=== PATIENT | female | born 1985 | race Two or more races ===

== ENCOUNTER 2024-08-13 00:01 | Emergency (ER) | payer MEDICAID, SELFPAY ==
[2024-08-13 00:10] VITALS: BP 113/71; PULSE 90; RESP 18; TEMP 37.2; O2SAT 98; BMI 23.8
--- NOTE | 2024-08-13 00:21 | EKG_ITS ---
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
--- NOTE | 2024-08-13 00:21 | XR_ITS ---
Examination: PA lateral chest 2 views Technique: Upright PA lateral chest 2 views Exam date and time: August 13, 2024 1230 hrs. Indications: Chest pain body aches today Findings: Normal heart size Lungs are clear The osseous structures are intact Impression: No active disease
--- NOTE | 2024-08-13 00:23 | PD.EDRME ---
Rapid Medical Screening Exam RME Arrival date/time: 08/13/24 00:01 39 year old female present to Ed for c/o of chest pain, n/v. I have greeted and performed a focused initial assessment of this patient. A comprehensive ED assessment and evaluation of the patient, analysis of all test results, and completion of the medical decision making process will be conducted by additional ED providers. Chief Complaint: Abdominal Pain Time Seen by Provider: 08/13/24 00:07 Vital signs: Vital Signs Temperature 98.9 F 08/13/24 00:10 Pulse Rate 90 08/13/24 00:10 Respiratory Rate 18 08/13/24 00:10 Blood Pressure 113/71 08/13/24 00:10 Pulse Oximetry (%) 98 08/13/24 00:10 Oxygen Delivery Method Room Air 08/13/24 00:10
[2024-08-13] MEDS: ONDANSETRON ODT 4 MG TABRAP PO (00:26)
[2024-08-13] MEDS: MG HYD/AL HYD/SIME (Maalox Reg) SUSP 30 ML UDC PO (00:26)
[2024-08-13 00:45] LABS: Basophils % (Auto) 0 % (0-2.5); Eosinophils # (Auto) 0.1 Thou/mm3 (0.0-0.5); Eosinophils % (Auto) 1 % (0-10); Hematocrit 36.7 % (36.0-46.0); Hemoglobin 12.4 g/dL (12.0-16.0); Immature Granulocytes % (Auto) 0 % (0-0); Immature Granulocytes Auto 0.02 Thou/mm3 (0.00-0.00); Lymphocytes # (Auto) 1.1 Thou/mm3 (1.0-4.8); Lymphocytes % (Auto) 20 % (10-50); Mean Corpuscular HGB Conc 33.8 g/dl (31.0-37.0); Mean Corpuscular Hemoglobin 27.3 pg (25.0-35.0); Mean Corpuscular Volume 81 fL (80-100); Monocytes # (Auto) 0.5 Thou/mm3 (0.0-0.8); Monocytes % (Auto) 9 % (0-12); Neutrophils # (Auto) 3.9 Thou/mm3 (1.8-7.7); Neutrophils % (Auto) 70 % (37-80); Nucleated Red Blood Cell % 0 /100 WBC (0); Platelet Count 183 Thou/mm3 (140-440); Red Blood Count 4.55 Miln/mm3 (4.00-5.20); White Blood Count 5.5 Thou/mm3 (3.6-11.0)
[2024-08-13 01:02] LABS: Alanine Aminotransferase 37 U/L (10-49); Albumin, Serum 4.9 gm/dL (3.5-5.0); Albumin/Globulin Ratio 1.8 (1.2-2.2); Alkaline Phosphatase 109 U/L (46-116); Anion Gap 6 (7-16); Aspartate Amino Transferase 28 U/L (0-34); BUN/Creatinine Ratio 10 Ratio (12-20); Bilirubin,Total 0.5 mg/dL (0.3-1.2); Blood Urea Nitrogen 7 mg/dL (9-23); Calcium 9.1 mg/dL (8.3-10.6); Calcium (Corrected) 9.1 mg/dL (8.5-10.1); Carbon Dioxide 25.2 mMol/L (20.0-31.0); Chloride 105 mMol/L (98-107); Creatinine (Component) 0.7 mg/dL (0.6-1.3); Estimated Creatinine Clearance 93.2 mL/min (>60); Globulin 2.7 gm/dL (2.3-3.5); Glucose 105 mg/dL (74-106); Lipase 50 U/L (12-53); Osmolality,Calculated 269 (275-295); Potassium 3.6 mMol/L (3.4-5.1); Sodium 136 mMol/L (136-145); Total Protein 7.6 gm/dL (5.7-8.2); Troponin I < 0.020 ng/mL (0.0-0.045); eGFR > 60 See Note
[2024-08-13 01:07] LABS: HCG,Qualitative Serum Negative
--- NOTE | 2024-08-13 03:29 | EDNOTE_ITS ---
<Statement entered by Raisa Patel MD - 08/13/24 22:07> As co-signing physician, I was present and available for consult prn. I concur with the plan and care as documented by the midlevel provider. ED Abdominal Pain RME/HPI General Chief Complaint: Abdominal Pain Stated complaint: EPIGASTRIC PAIN,N/V Time seen by provider: 08/13/24 00:07 Arrival date/time: 08/13/24 00:01 39 year old female present to emergency room with c/o of epigastric pain and nausea/vomiting today. LOCATION:epigastric SEVERITY: Symptoms are described as being severe with limitations on activities of daily living QUALITY: Symptoms are described as being cramping CONTEXT: The patient is unable to identify any inciting events. DURATION/TIMING: The symptoms started approximately one day ago and have been waxing/waning but always present without ever completely resolving. ASSOCIATED SYMPTOMS: The patient is unable to identify any other associated symptoms. MODIFYING FACTORS: The patient is unable to identify any alleviating or aggravating symptoms. PERTINENT ROS: no fevers, no anorexia, no nausea or vomiting, no diarrhea, no ripping or tearing sensations, no syncope or presyncopal symptoms, denies trauma, denies genital pain REVIEW OF SYSTEMS: See History of Present Illness - with the exception of those mentioned in the history of present illness, all other systems reviewed and reported as negative GENERAL: In general the patient is awake, interactive, in an emergency department gurney. HEAD/EYES/EARS/NOSE/THROAT: normo-cephalic, atraumatic, mucus membranes are moist, anicteric, palpebral conjunctiva is pink, trachea is midline. CARDIOVASCULAR: regular rate and regular rhythm, no murmurs, heart sounds are not distant, strong pulses in all four extremities that are equal and symmetric bilateral upper and lower extremities, normal capillary refill. CHEST/PULMONARY: normal chest rise and fall, good air movement, clear to auscultation bilaterally, normal inspiratory to expiratory ratios without evidence of respiratory distress. NECK: No midline/Paraspinal tenderness, no step off ROM/Strenght intact No Kernig and bruzinski sign. No trauma ABDOMEN: soft, epigastric pain , no masses appreciated BACK: normal range of motion without pain. NEUROLOGICAL: cranio-facial features are symmetric, moves all four extremities equally without obvious limitations or weakness. EXTREMITY: no tenderness to palpation over the long bones or large joints of the bilateral upper and lower extremities, no joint swelling, no joint erythema, no signs of trauma, no unilateral leg swelling and no peripheral edema. SKIN: warm, dry, well-perfused, no jaundice, no rash, no telangiectasias or petechia. PSYCH: calm, cooperative, no evidence of psychosis or agitation RME / HPI RME / HPI narrative: 08/13/24 00:01 39 year old female present to Ed for c/o of chest pain, n/v. I have greeted and performed a focused initial assessment of this patient. A comprehensive ED assessment and evaluation of the patient, analysis of all test results, and completion of the medical decision making process will be conducted by additional ED providers. Related Data Previous Rx's ?Medication ?Instructions ?Recorded acetaminophen 300 mg-codeine 15 mg 1 tab PO Q12H PRN pain #14 tabs 05/10/24 tablet albuterol sulfate 90 mcg/actuation 1 inh inhalation QID PRN shortness 05/10/24 aerosol inhaler of breath or wheezing #8.5 grams ibuprofen 800 mg tablet 800 mg PO Q8H PRN pain #20 tabs 05/10/24 aluminum-mag hydroxide-simethicone 10 ml PO TID PRN indigestion #355 08/13/24 400 mg-400 mg-40 mg/5 mL oral susp mL (Maalox Maximum Strength) ondansetron 4 mg disintegrating 4 mg PO Q8H PRN nausea and 08/13/24 tablet vomiting #20 tabs Allergies Allergy/AdvReac Type Severity Reaction Status Date / Time No Known Allergies Allergy Verified 08/13/24 00:05 Course Course Course Narrative: Patient?s symptoms not typical for emergent causes of abdominal pain such as, but not limited to, appendicitis, abdominal aortic aneurysm, surgical biliary disease, pancreatitis, SBO, mesenteric ischemia, serious intra-abdominal bacterial illness. Presentation also not typical of gynecologic emergencies such as?TOA, Ovarian Torsion, PID. Not Ectopic. Doubt atypical ACS. Pt tolerating PO. Disposition: Patient will be discharged with strict return precautions and follow up with primary MD within 12-24 hours for further evaluation. Patient understands that this still may have an early presentation of an emergent medical condition such as appendicitis that will require a recheck. Quality Measures none Orders Category Date Time Status EKG (ED ONLY) *Do not use* NOW Care 08/13/24 00:21 Completed EKG (ED Only) Stat Exams 08/13/24 00:21 Draft XR chest 2V Stat Exams 08/13/24 00:21 Taken CBC Stat Lab 08/13/24 00:38 Completed CMP [Comprehensive Metabolic Panel] Stat Lab 08/13/24 00:38 Completed HCG,Qualitative Serum Stat Lab 08/13/24 00:38 Completed Lipase Stat Lab 08/13/24 00:38 Completed Troponin I Stat Lab 08/13/24 00:38 Completed Ondansetron Odt [Zofran Odt] Med 08/13/24 00:21 Discontinued 4 mg PO X1 ONE mg Hyd/Al Hyd/Ranjeet Susp [Maalox Susp] Med 08/13/24 00:21 Discontinued 30 ml PO X1 ONE Reevaluation(s) Reevaluation #1: patient is feeling and comfortable to go home Vital Signs Vital signs: Vital Signs Temperature 98.9 F 08/13/24 00:10 Pulse Rate 90 08/13/24 00:10 Respiratory Rate 18 08/13/24 00:10 Blood Pressure 113/71 08/13/24 00:10 Pulse Oximetry (%) 98 08/13/24 00:10 Oxygen Delivery Method Room Air 08/13/24 00:10 Procedures -ED EKG Interpretation #1: Date of EK08/13/24 Rate: 72 Interpretation: Reviewed by me EKG Impression: Normal sinus rhythm, No acute ST-T changes, No ectopy and No ischemic changes Abdominal Pain MDM Patient data External records reviewed:: [facility] previous records Clinical information provided by:: patient Social determinants that could affect healthcare access:: none Patient has the following chronic illnesses:: none How is presenting disease/condition affected by chronic disease/condition?: no chronic disease Evaluation data The following diagnostics were reviewed and interpreted by me:: lab results, radiology exam(s) and EKG tracing(s) Lab and/or radiology exams considered but not ordered:: none Interpretation Summary: cbc/cmp, trop, lipase wnl Medications / Prescriptions Medications or Prescriptions considered but not ordered:: none Medication administrations:: Medication Administration History Discontinued Medications Al Hydrox/Mg Hydrox/Simethicone (Mg Hyd/Al Hyd/Ranjeet (Maalox Reg) Susp 30 Ml Udc) 30 ml PO X1 ONE Stop: 08/13/24 00:22 Last Admin: 08/13/24 00:26 Dose: 30 ml Documented By: Ondansetron HCl (Ondansetron Odt 4 Mg Tabrap) 4 mg PO X1 ONE; Protocol Stop: 08/13/24 00:22 Last Admin: 08/13/24 00:26 Dose: 4 mg Documented By: as stated above Consultations Consultation(s) initiated? (list below): No Diagnosis Differential diagnosis abdominal pain: abdominal pain, calculus of kidney, constipation, gastroenteritis, pancreatitis and other (gerd/ulcer , uti ) Most likely diagnosis given after review of the tests above:: gerd/gastritis Admission Indicated Admission indicated?: not indicated Admission Request Was there a request for admission?: No Disposition Plan Disposition Plan: Discharge Discharge Attestation Discharge Attestation: The patient and all family members were given an opportunity to ask questions and understood the discharge instructions. Discharge instructions specifically effects, indications for sooner follow up or return to the emergency department, and the expected course of current diagnosis. Patient condition: Stable Discharge Plan Plan Patient Disposition: HOME (Self Care) Prescriptions/Referrals Prescriptions/Med Rec: New ondansetron 4 mg tablet,disintegrating 4 mg PO Q8H PRN (Reason: nausea and vomiting) Qty: 20 0RF alum-mag hydroxide-simeth [Maalox Maximum Strength] 400-400-40 mg/5 mL suspension 10 ml PO TID PRN (Reason: indigestion) Qty: 355 0RF No Action albuterol sulfate 90 mcg/actuation HFA aerosol inhaler 1 inh inhalation QID PRN (Reason: shortness of breath or wheezing) Qty: 8.5 0RF acetaminophen-codeine 300-15 mg tablet 1 tab PO Q12H PRN (Reason: pain) Qty: 14 0RF ibuprofen 800 mg tablet 800 mg PO Q8H PRN (Reason: pain) Qty: 20 0RF Referrals: Ary Neumann MD [Primary Care Provider] - In 1 week Problem List Clinical Impression: Abdominal pain Patient/Caregiver Discharge Instructions Education Materials: Abdominal Pain Print Language: Turkmen Stand Alone Forms: [employer] Award Info., Patient Portal Info Letter
[2024-08-13 03:32] VITALS: RESP 18
== END 2024-08-13 03:33 | disposition home or self-care (01) ==
PROVIDERS: Physician Assistant; Emergency Provider Emergency Medicine; PCP Internal Medicine
DX: R10.13 Epigastric pain (principal); R11.2 Nausea with vomiting, unspecified; R07.9 Chest pain, unspecified
CPT/HCPCS: 36415; 71046; 80053; 83690; 84484; 84703; 85025; 93005; 99283; Q0162; A9270

== ENCOUNTER → 2024-10-14 | Outpatient (CLI) | payer MEDICAID, SELFPAY ==
--- NOTE | 2024-10-14 10:00 | XR_ITS ---
Examination: CT maxillofacial, without intravenous contrast. 2-D sagittal reconstructions. 3-D reconstructions. Date and time of exam:October 14, 2024 1019 hours INDICATIONS: Sinus pressure and pain 2 years CTDI: vol (mGy):6.61 DLP: (mGycm):120 Technique: Multiple axial images of maxillofacial region, 3.0 mm slice thickness. 2-D sagittal and coronal reconstructions. 3-D reconstructions. Low dose protocols were performed. One or more of the following dose reduction techniques were used; automated exposure control, adjustment of the mA and/or KV according to patient size, use of iterative reconstruction technique. Findings: Total opacification frontal air cells Total opacification right ethmoid air cells with occlusion right ostiomeatal complex Mucosal thickening up to 12 mm in the maxillary antra Extensive mucosal disease in the nasal airways Almost complete opacification of the sphenoid air cells No nasopharyngeal mass Adequate mastoid aeration Negative for otitis media The optic globes exhibit symmetry IMPRESSION: Severe chronic pansinusitis
== END | disposition home or self-care (01) ==
LOC: CCTX 10:04
PROVIDERS: PCP Internal Medicine; Referring Provider Internal Medicine; Visit Provider Internal Medicine
DX: J32.4 Chronic pansinusitis (principal)
CPT/HCPCS: 70486

== ENCOUNTER → 2024-12-27 | Outpatient (CLI) | payer MEDICAID, SELFPAY ==
--- NOTE | 2024-12-27 11:30 | XR_ITS ---
Examination: Ultrasound soft tissue neck TECHNIQUE: Grayscale sonographic images soft tissue neck Exam date and time: December 27, 2024 1125 hours INDICATIONS: History biopsy left thyroid nodule, history multiple thyroid nodules with swelling in the mid neck beginning 3 years ago FINDINGS: Soft tissue upper right neck 15 x 9 x 14 mm lymph node Soft tissue upper left neck 23 x 8 x 11 mm lymph node IMPRESSION: Lymphadenopathy as above, suggest CT soft tissue neck post intravenous contrast follow-up
== END | disposition home or self-care (01) ==
PROVIDERS: PCP Internal Medicine; Referring Provider Internal Medicine; Visit Provider Internal Medicine
DX: R59.0 Localized enlarged lymph nodes (principal)
CPT/HCPCS: 76536

== ENCOUNTER → 2025-01-26 | Outpatient (CLI) | payer MEDICAID, SELFPAY ==
--- NOTE | 2025-01-26 13:30 | XR_ITS ---
Examination: CT soft tissue neck, with intravenous contrast. 2-D coronal reconstructions. 2-D sagittal reconstructions. Date and time of exam :January 26, 2025 1426 hours INDICATIONS: Palpable lymph nodes in the neck note is beginning one month ago, ultrasound soft tissue neck December 27, 2024 15 mm right neck lymph node and 23 mm left neck lymph node. CTDI: vol (mGy):10.7 DLP: (mGycm):279 Technique: 1.25 mm axial sections of the neck of the obtained. Coronal and sagittal reconstructions have been obtained. Intravenous contrast administered 50 cc Isovue-370. Low dose protocols were performed. One or more of the following dose reduction techniques were used; automated exposure control, adjustment of the mA and/or KV according to patient size, use of iterative reconstruction technique. Findings: Bilateral carotid triangle lymph nodes, the largest on the left side 13 mm Subcentimeter submental lymph nodes Symmetrical nasopharynx oropharynx The larynx appears normal Bilateral thyroid nodules, the largest on the left side 10 mm Normal epiglottis IMPRESSION: Cervical lymphadenopathy as above Bilateral thyroid nodules, suggest dedicated thyroid sonography follow-up
== END | disposition home or self-care (01) ==
LOC: CCTX 13:37
PROVIDERS: PCP Internal Medicine; Referring Provider Internal Medicine; Visit Provider Internal Medicine
DX: R59.0 Localized enlarged lymph nodes (principal); E04.2 Nontoxic multinodular goiter
CPT/HCPCS: 70491; A4649; Q9967

== ENCOUNTER → 2025-02-22 | Outpatient (CLI) | payer MEDICAID, SELFPAY ==
--- NOTE | 2025-02-22 09:45 | XR_ITS ---
Examination: Thyroid sonography complete TECHNIQUE: Grayscale sonographic images thyroid lobes Date and time: February 22, 2025 1001 hours INDICATIONS: Thyroid nodules noted on CT soft tissue study January 26, 2025. FINDINGS: Right thyroid 6.5 cm Upper pole cyst 7 x 6 mm Complex upper pole cyst 3 x 4 mm Upper pole vascular solid nodule 7 x 4 x 7 mm Left thyroid 5.9 cm Upper pole nodule 11 x 8 x 11 mm Midpole nodule 2.2 x 1.8 x 1.6 cm Lower pole nodule 1.0 x 0.6 x 0.9 cm Additional smaller nodules IMPRESSION: Bilateral thyroid nodules as above, consider ultrasound-guided fine-needle aspiration of the mid pole left thyroid nodule 2.2 x 1.8 x 1.6 cm
== END | disposition home or self-care (01) ==
PROVIDERS: PCP Internal Medicine; Referring Provider Internal Medicine; Visit Provider Internal Medicine
DX: E04.2 Nontoxic multinodular goiter (principal)
CPT/HCPCS: 76536

== ENCOUNTER 2025-03-07 04:01 | Emergency (ER) | payer MEDICAID, SELFPAY ==
--- NOTE | 2025-03-07 | XR_ITS ---
Examination: MRI pelvis with intravenous contrast. MRI pelvis without intravenous contrast. Date and time of exam: February 25, 2025 0819 hours INDICATIONS: Severe lower abdominal pain beginning this morning 3:00 AM, in large right adnexal mass, pelvic sonogram this morning vascular in large right ovary Technique: Multiple axial, sagittal and coronal sections of the abdomen obtained. Transverse images, TR 6020, TE 107. T1 weighted transverse images, TR 582, TE 9.5. T2-weighted sagittal images, TR 4000, TE 105. T2-weighted sagittal images, TR 4000, TE 5. Coronal images, TR 4210, TE 107. Axial and coronal images are obtained post 12 cc intravenous injection, gadolinium. Findings: Anteverted uterus, 9 x 3.8 x 4 cm Enhancing mass anterior surface of the body the uterus 24 mm consistent with fibroid degeneration Cystic mass in the right adnexal region, 5.2 cm with enhancing thick wall but without internal nodularity Urinary bladder intact No left ovarian enlargement IMPRESSION: Thick-walled cystic mass in the right adnexal region 5.2 cm, differential would include complex cyst, cystadenoma, less likely cystadenocarcinoma
[2025-03-07 04:04] VITALS: BMI 23.1
[2025-03-07 04:05] VITALS: BP 144/78; PULSE 70; RESP 18; TEMP 37.1; O2SAT 100
[2025-03-07 04:10] VITALS: PULSE 72; RESP 20; O2SAT 99
--- NOTE | 2025-03-07 04:33 | EDNOTE_ITS ---
ED Abdominal Pain RME/HPI General Chief Complaint: Abdominal Pain Stated complaint: ABD PAIN Time seen by provider: 03/07/25 04:40 Arrival date/time: 03/07/25 04:01 RME / HPI RME / HPI narrative: This section includes all my notes and documentations, including HPI, PE, and ED course. Jae Oconnell MD HPI: 39yo female BIBA with severe lower abdominal pain that started just prior to arrival. Patient was bottle feeding her baby when the pain started. No fever, chills, nausea, vomiting, UTI symptoms. PSH includes x1. No other complaints. ROS: All negative except as documented in HPI. Physical Exam: General: Alert and oriented. In severe pain. Eyes: Conjunctivae and lids clear. ENT: No nasal congestion. Neck: Supple. Heart: RRR. Lungs: No respiratory distress. Good air movement. No rhonchi, wheezing, rales. Abdomen: Soft with lower quadrant tenderness, R > L.decreased bowel sounds. No distension. No rebound or guarding. Back: No CVA tenderness. Skin: Warm and dry. Neuro: Alert and oriented X 3. I reviewed EMS notes. I ordered IV fluid, Zofran, Toradol, morphine, and diagnostic tests. At 0600 on 03/07/25, care transferred to Dr. Ames. Jae Oconnell MD Related Data Previous Rx's ?Medication ?Instructions ?Recorded acetaminophen 300 mg-codeine 15 mg 1 tab PO Q12H PRN p ain #14 tabs 05/10/24 tablet albuterol sulfate 90 mcg/actuation 1 inh inhalation QI D PRN shortness 05/10/24 aerosol inhaler of breath or wheezing #8.5 g pedro ibuprofen 800 mg tablet 800 mg PO Q8H PRN pain #20 t abs 05/10/24 aluminum-mag hydroxide-simethicone 10 ml PO TID PRN in digestion #355 08/13/24 400 mg-400 mg-40 mg/5 mL oral susp mL (Maalox Maximum Strength) ondansetron 4 mg disintegrating 4 mg PO Q8H PRN nausea and 08/13/24 tablet vomiting #20 tabs Allergies Allergy/AdvReac Type Severity Reaction Status Date / Time No Known Allergies Allergy Verified 08/13/24 00:05 Review of Systems Review of Systems Systems Reviewed: All systems reviewed, normal except as documented Past Medical History Past Medical History NEUROLOGIC: Negative Neurological Disorders or Seizures CARDIAC: Negative Cardiac Disorders or Congestive Heart Failure RESPIRATORY: Positive Bronchitis; Negative Chronic Obstructive Pulmonary Disease (COPD) GASTROINTESTINAL: Negative Gastrointestinal Disorders GENITOURINARY: Negative Genitourinary Disorders or Renal Disease REPRODUCTIVE: Negative Pelvic Inflammatory Disease MUSCULOSKELETAL: Negative Musculoskeletal Disorders ENDOCRINE: Positive Endocrine Disorders and Hyperthyroidism (not on meds); Negative Diabetes Mellitus Type 1, Diabetes Mellitus Type 2 or Hypoglycemia HEMATOLOGIC: Positive Blood Disorders and Anemia OTHER HISTORY: Negative Autoimmune Disease, Blood Transfusions, Blood Transfusion Reaction, Anesthesia Reactions, MRSA, VRSA, Vancomycin-Resistant Enterococci, Clostridium Difficile or Cancer Family History FAMILY HISTORY: Negative Family Psychiatric Problems, Family Respiratory Disorders, Family Cardiac Disorders, Family Gastrointestinal Problems, Family Cancer, Family Surgery or Family Anesthesia Reaction Social History SMOKING STATUS: Never smoker ED Exam Narrative Physical exam: As noted in HPI. Course Quality Measures none Vital Signs Vital signs: Vital Signs Temperature 98.8 F 03/07/25 04:05 Pulse Rate 70 03/07/25 04:05 Respiratory Rate 18 03/07/25 04:05 Blood Pressure 144/78 H 03/07/25 04:05 Pulse Oximetry (%) 100 03/07/25 04:05 Oxygen Delivery Method Room Air 03/07/25 04:05 Abdominal Pain MDM MDM Narrative MDM Narrative:: 39yo female BIBA with severe lower abdominal pain that started just prior to arrival. Patient was bottle feeding her baby when the pain started. No fever, chills, nausea, vomiting, UTI symptoms. PSH includes x1. No other complaints. Patient data External records reviewed:: [facility] previous records (Per chart review, patient was seen here on 08/13/24 for abdominal pain.) and EMS form Clinical information provided by:: patient Social determinants that could affect healthcare access:: none Patient has the following chronic illnesses:: none How is presenting disease/condition affected by chronic disease/condition?: no chronic disease Evaluation data The following diagnostics were reviewed and interpreted by me:: lab results, radiology exam(s) and EKG tracing(s) (My interpretation of the EKG: NSR (67 bpm) with no ST-T changes. Jae Oconnell MD) Lab and/or radiology exams considered but not ordered:: none Interpretation Summary: Diagnostic tests are pending. Medications / Prescriptions Medications or Prescriptions considered but not ordered:: none Medication administrations:: I ordered IV fluid, Zofran, and morphine. Consultations Consultation(s) initiated? (list below): No Diagnosis Differential diagnosis abdominal pain: acute appendicitis, calculus of kidney, constipation, diverticulitis, endometriosis, gastroenteritis, pancreatitis and small bowel obstruction Most likely diagnosis given after review of the tests above:: Diagnostic tests are pending. Admission Indicated Admission indicated?: not indicated Explain why admission is indicated or not indicated:: Diagnostic tests are pending. Admission Request Was there a request for admission?: No Disposition Plan Disposition Plan: other (specify) (Signed out to Dr. Ames at 0600.) Discharge Plan Prescriptions/Referrals Prescriptions/Med Rec: No Action ondansetron 4 mg tablet,disintegrating 4 mg PO Q8H PRN (Reason: nausea and vomiting) Qty: 20 0RF alum-mag hydroxide-simeth [Maalox Maximum Strength] 400-400-40 mg/5 mL suspension 10 ml PO TID PRN (Reason: indigestion) Qty: 355 0RF albuterol sulfate 90 mcg/actuation HFA aerosol inhaler 1 inh inhalation QID PRN (Reason: shortness of breath or wheezing) Qty: 8.5 0RF acetaminophen-codeine 300-15 mg tablet 1 tab PO Q12H PRN (Reason: pain) Qty: 14 0RF ibuprofen 800 mg tablet 800 mg PO Q8H PRN (Reason: pain) Qty: 20 0RF Problem List Clinical Impression: Abdominal pain Patient/Caregiver Discharge Instructions Print Language: Azerbaijani
--- NOTE | 2025-03-07 04:50 | XR_ITS ---
Examination: CT abdomen with intravenous contrast CT pelvis with intravenous contrast 2-D coronal reconstructions 2-D sagittal reconstructions Date and time of exam:March 07, 2025 at 0644 hours INDICATIONS: Onset of pelvic pain today. CTDI: vol (mGy) 6.42 DLP: (mGycm) 342 Technique: Multiple axial sections of the abdomen and pelvis have been obtained. 64 slice high-resolution scanner used. 3 mm axial sections have been obtained, post intravenous injection 60 cc Isovue-370 2-D sagittal, coronal reconstructions obtained. Low dose protocols were performed. One or more of the following dose reduction techniques were used; automated exposure control, adjustment of the mA and/or KV according to patient size, use of iterative reconstruction technique. Findings: 13 mm low-density lesion upper right lobe of the liver which may represent a cyst Spleen is not enlarged No gallstones No pancreatic mass No renal or ureteral calculi, no hydronephrosis Aorta normal size Normal appendix No bowel obstruction Anteverted uterus Enlarged right adnexal mass with thick wall and septations, measuring at least 5 cm Urinary bladder intact Osseous structures intact IMPRESSION: Recommend hepatic sonography to confirm 13 mm right lobe liver cyst Enlarged right adnexal mass, thick-walled with septations, measuring at least 5 cm, differential would include cystadenocarcinoma Recommend MRI pelvis follow-up and postcontrast
--- NOTE | 2025-03-07 04:51 | XR_ITS ---
Examination: Pelvic ultrasound, transabdominal, complete Technique: Transabdominal ultrasound of the pelvis performed using grayscale imaging Date and time of exam: March 07, 2025 0558 hours INDICATIONS: Pelvic pain and weakness beginning 2 hours ago FINDINGS: Uterus 9.1 cm endometrial stripe 0.5 cm No uterine mass or intrauterine gestation Right ovary 5.2 cm arterial flow, right ovarian cyst 19 x 21 mm Left ovary obscured by bowel gas IMPRESSION: Abnormal enlargement and vascular right ovary 5.2 x 4.1 x 3.9 cm, differential would include early right ovarian tumor, recommend MRI pelvis follow-up pre and postcontrast
[2025-03-07 05:04] LABS: Basophils % (Auto) 0 % (0-2.5); Eosinophils # (Auto) 0.5 Thou/mm3 (0.0-0.5); Eosinophils % (Auto) 6 % (0-10); Hematocrit 36.1 % (36.0-46.0); Hemoglobin 12.5 g/dL (12.0-16.0); Immature Granulocytes % (Auto) 0 % (0-0); Immature Granulocytes Auto 0.03 Thou/mm3 (0.00-0.00); Lymphocytes # (Auto) 2.4 Thou/mm3 (1.0-4.8); Lymphocytes % (Auto) 26 % (10-50); Mean Corpuscular HGB Conc 34.6 g/dl (31.0-37.0); Mean Corpuscular Hemoglobin 28.2 pg (25.0-35.0); Mean Corpuscular Volume 81 fL (80-100); Monocytes # (Auto) 0.7 Thou/mm3 (0.0-0.8); Monocytes % (Auto) 7 % (0-12); Neutrophils # (Auto) 5.5 Thou/mm3 (1.8-7.7); Neutrophils % (Auto) 60 % (37-80); Nucleated Red Blood Cell % 0 /100 WBC (0); Platelet Count 155 Thou/mm3 (140-440); Red Blood Count 4.44 Miln/mm3 (4.00-5.20); White Blood Count 9.1 Thou/mm3 (3.6-11.0)
[2025-03-07 05:15] LABS: HCG,Qualitative Serum Negative
[2025-03-07 05:17] LABS: Partial Thromboplastin Time 24.5 Seconds (22.0-36.0); Prothrombin Time 11.3 Seconds (9.0-12.2)
[2025-03-07] MEDS: KETOROLAC INJ 30 MG/ML VIAL IVP (05:18)
[2025-03-07] MEDS: SODIUM CHLORIDE 0.9% 1000 ML 1,000 ML 999 ML IV (05:18)
[2025-03-07] MEDS: ONDANSETRON INJ 2 MG/ML INJ 2 ML 4 MG IVP (05:18)
[2025-03-07] MEDS: MORPHINE SULF INJ 10 MG/ML VIAL 4 MG IVP (05:19)
[2025-03-07 05:21] LABS: Alanine Aminotransferase 24 U/L (10-49); Albumin, Serum 4.7 gm/dL (3.5-5.0); Albumin/Globulin Ratio 1.8 (1.2-2.2); Alkaline Phosphatase 102 U/L (46-116); Anion Gap 8 (7-16); Aspartate Amino Transferase 24 U/L (0-34); BUN/Creatinine Ratio 16 Ratio (12-20); Bilirubin,Direct 0.1 mg/dL (0.0-0.3); Bilirubin,Total 0.4 mg/dL (0.3-1.2); Blood Urea Nitrogen 11 mg/dL (9-23); Calcium 9.3 mg/dL (8.3-10.6); Calcium (Corrected) 9.3 mg/dL (8.5-10.1); Carbon Dioxide 22.8 mMol/L (20.0-31.0); Chloride 108 mMol/L (98-107); Creatinine (Component) 0.7 mg/dL (0.6-1.3); Estimated Creatinine Clearance 93.2 mL/min (>60); Globulin 2.6 gm/dL (2.3-3.5); Glucose 100 mg/dL (74-106); Osmolality,Calculated 276 (275-295); Potassium 3.7 mMol/L (3.4-5.1); Sodium 139 mMol/L (136-145); Total Protein 7.3 gm/dL (5.7-8.2); eGFR > 60 See Note
--- NOTE | 2025-03-07 05:33 | EDNOTE_ITS ---
Emergency Room Addendum <Nikkie Riccardo - Last Filed: 03/07/25 05:35> Addendum Narrative: 0530: Care assumed from Dr. Ames, the previous shift emergency physician. Past medical, surgical, social and family history reviewed. Vitals and home medications reviewed. Results and treatment plan discussed. I will assume the care of the patient at this time and will follow the patient, pending CT abdomen pelvis, US transvaginal, and labs. Please refer to the emergency department record for history and examination from initial visit. <Haley Her - Last Filed: 03/07/25 11:00> Addendum Narrative: 0530: Care assumed from Dr. Ames, the previous shift emergency physician. Past medical, surgical, social and family history reviewed. Vitals and home medications reviewed. Results and treatment plan discussed. I will assume the care of the patient at this time and will follow the patient, pending CT abdomen pelvis, US transvaginal, and labs. Please refer to the emergency department record for history and examination from initial visit. 1050: Patient remains clinically stable throughout the emergency department visit. Re-assessment at the time of disposition demonstrates that the patient is in no acute distress. We reviewed all the results, analysis, and treatment plans. Patient is amenable to discharge. Strict return precautions were outlined. Patient was discharged in stable condition. Diagnoses: -Abdominal pain -Complex cyst of right ovary Results <Nikkie Gu - Last Filed: 03/07/25 05:35> Objective Laboratory: Laboratory Last Values WBC 9.1 Thou/mm3 (3.6-11.0) 03/07/25 04:50 RBC 4.44 Miln/mm3 (4.00-5.20) 03/07/25 04:50 Hgb 12.5 g/dL (12.0-16.0) 03/07/25 04:50 Hct 36.1 % (36.0-46.0) 03/07/25 04:50 MCV 81 fL (80-100) 03/07/25 04:50 MCH 28.2 pg (25.0-35.0) 03/07/25 04:50 MCHC 34.6 g/dl (31.0-37.0) 03/07/25 04:50 RDW Std Deviation 40.0 fL (36.4-46.3) 03/07/25 04:50 Plt Count 155 Thou/mm3 (140-440) 03/07/25 04:50 Neut % (Auto) 60 % (37-80) 03/07/25 04:50 Lymph % (Auto) 26 % (10-50) 03/07/25 04:50 [place] % (Auto) 7 % (0-12) 03/07/25 04:50 Eos % (Auto) 6 % (0-10) 03/07/25 04:50 Baso % (Auto) 0 % (0-2.5) 03/07/25 04:50 Neut # (Auto) 5.5 Thou/mm3 (1.8-7.7) 03/07/25 04:50 Lymph # (Auto) 2.4 Thou/mm3 (1.0-4.8) 03/07/25 04:50 [place] # (Auto) 0.7 Thou/mm3 (0.0-0.8) 03/07/25 04:50 Eos # (Auto) 0.5 Thou/mm3 (0.0-0.5) 03/07/25 04:50 Baso # (Auto) 0.0 Thou/mm3 (0.0-0.2) 03/07/25 04:50 Immature Gran # (Auto) 0.03 Thou/mm3 (0.00-0.00) H 03/07/25 04:50 Absolute Nucleated RBC 0.00 Thou/mm3 (0.00-0.00) 03/07/25 04:50 Immature Gran % 0 % (0-0) 03/07/25 04:50 Nucleated RBC % 0 /100 WBC (0) 03/07/25 04:50 PT 11.3 Seconds (9.0-12.2) 03/07/25 04:50 INR 1.0 (0.9-1.3) 03/07/25 04:50 APTT 24.5 Seconds (22.0-36.0) 03/07/25 04:50 Sodium 139 mMol/L (136-145) 03/07/25 04:50 Potassium 3.7 mMol/L (3.4-5.1) 03/07/25 04:50 Chloride 108 mMol/L (98-107) H 03/07/25 04:50 Carbon Dioxide 22.8 mMol/L (20.0-31.0) 03/07/25 04:50 Anion Gap 8 (7-16) 03/07/25 04:50 BUN 11 mg/dL (9-23) 03/07/25 04:50 Creatinine 0.7 mg/dL (0.6-1.3) 03/07/25 04:50 Estim Creat Clear Calc 93.2 mL/min (>60) 03/07/25 04:50 eGFR > 60 See Note (60-) 03/07/25 04:50 BUN/Creatinine Ratio 16 Ratio (12-20) 03/07/25 04:50 Glucose 100 mg/dL (74-106) 03/07/25 04:50 Calculated Osmolality 276 (275-295) 03/07/25 04:50 Calcium 9.3 mg/dL (8.3-10.6) 03/07/25 04:50 Corrected Calcium 9.3 mg/dL (8.5-10.1) 03/07/25 04:50 Magnesium 2.0 mg/dL (1.6-2.6) 03/07/25 04:50 Total Bilirubin 0.4 mg/dL (0.3-1.2) 03/07/25 04:50 Direct Bilirubin 0.1 mg/dL (0.0-0.3) 03/07/25 04:50 AST 24 U/L (0-34) 03/07/25 04:50 ALT 24 U/L (10-49) 03/07/25 04:50 Alkaline Phosphatase 102 U/L (46-116) 03/07/25 04:50 Total Protein 7.3 gm/dL (5.7-8.2) 03/07/25 04:50 Albumin 4.7 gm/dL (3.5-5.0) 03/07/25 04:50 Globulin 2.6 gm/dL (2.3-3.5) 03/07/25 04:50 Albumin/Globulin Ratio 1.8 (1.2-2.2) 03/07/25 04:50 HCG, Qual Negative 03/07/25 04:50 Ur Collection Type Clean Catch 03/07/25 06:28 Urine Color Colorless (Lt Yel-Yel) A 03/07/25 06:28 Urine Clarity Clear (Clear/Hazy) 03/07/25 06: Urine pH 6.5 (5.0-7.0) 03/07/25 06: Ur Specific [place] 1.007 (1.001-1.035) 03/07/25 06: Urine Protein Negative (Neg - Trace) 03/07/25 06: Urine Glucose (UA) Negative (Negative) 03/07/25: Urine Ketones Negative (Negative) 03/07/25: Urine Blood Negative (Negative) 03/07/25 06: Urine Nitrite Negative (Negative) 03/07/25: Urine Bilirubin Negative (Negative) 03/07/25: Urine Urobilinogen (Auto) Negative mg/dL (0.0-1.0) 03/07/25: Ur Leukocyte Esterase Negative (Negative) 03/07/25: Urine RBC 2 /hpf (0-3) 03/07/25: Urine WBC 1 /hpf (0-5) 03/07/25: Ur Squamous Epith Cells 1 /hpf (0-5) 03/07/25: Urine Bacteria None (None) 03/07/25 06: Ur Culture Indicated? Not Indicated 03/07/25: <Haley Arden - Last Filed: 03/07/25 11:00> Objective Laboratory: Laboratory Last Values WBC 9.1 Thou/mm3 (3.6-11.0) 03/07/25 04:50 RBC 4.44 Miln/mm3 (4.00-5.20) 03/07/25 04:50 Hgb 12.5 g/dL (12.0-16.0) 03/07/25 04:50 Hct 36.1 % (36.0-46.0) 03/07/25 04:50 MCV 81 fL (80-100) 03/07/25 04:50 MCH 28.2 pg (25.0-35.0) 03/07/25 04:50 MCHC 34.6 g/dl (31.0-37.0) 03/07/25 04:50 RDW Std Deviation 40.0 fL (36.4-46.3) 03/07/25 04:50 Plt Count 155 Thou/mm3 (140-440) 03/07/25 04:50 Neut % (Auto) 60 % (37-80) 03/07/25 04:50 Lymph % (Auto) 26 % (10-50) 03/07/25 04:50 [place] % (Auto) 7 % (0-12) 03/07/25 04:50 Eos % (Auto) 6 % (0-10) 03/07/25 04:50 Baso % (Auto) 0 % (0-2.5) 03/07/25 04:50 Neut # (Auto) 5.5 Thou/mm3 (1.8-7.7) 03/07/25 04:50 Lymph # (Auto) 2.4 Thou/mm3 (1.0-4.8) 03/07/25 04:50 [place] # (Auto) 0.7 Thou/mm3 (0.0-0.8) 03/07/25 04:50 Eos # (Auto) 0.5 Thou/mm3 (0.0-0.5) 03/07/25 04:50 Baso # (Auto) 0.0 Thou/mm3 (0.0-0.2) 03/07/25 04:50 Immature Gran # (Auto) 0.03 Thou/mm3 (0.00-0.00) H 03/07/25 04:50 Absolute Nucleated RBC 0.00 Thou/mm3 (0.00-0.00) 03/07/25 04:50 Immature Gran % 0 % (0-0) 03/07/25 04:50 Nucleated RBC % 0 /100 WBC (0) 03/07/25 04:50 PT 11.3 Seconds (9.0-12.2) 03/07/25 04:50 INR 1.0 (0.9-1.3) 03/07/25 04:50 APTT 24.5 Seconds (22.0-36.0) 03/07/25 04:50 Sodium 139 mMol/L (136-145) 03/07/25 04:50 Potassium 3.7 mMol/L (3.4-5.1) 03/07/25 04:50 Chloride 108 mMol/L (98-107) H 03/07/25 04:50 Carbon Dioxide 22.8 mMol/L (20.0-31.0) 03/07/25 04:50 Anion Gap 8 (7-16) 03/07/25 04:50 BUN 11 mg/dL (9-23) 03/07/25 04:50 Creatinine 0.7 mg/dL (0.6-1.3) 03/07/25 04:50 Estim Creat Clear Calc 93.2 mL/min (>60) 03/07/25 04:50 eGFR > 60 See Note (60-) 03/07/25 04:50 BUN/Creatinine Ratio 16 Ratio (12-20) 03/07/25 04:50 Glucose 100 mg/dL (74-106) 03/07/25 04:50 Calculated Osmolality 276 (275-295) 03/07/25 04:50 Calcium 9.3 mg/dL (8.3-10.6) 03/07/25 04:50 Corrected Calcium 9.3 mg/dL (8.5-10.1) 03/07/25 04:50 Magnesium 2.0 mg/dL (1.6-2.6) 03/07/25 04:50 Total Bilirubin 0.4 mg/dL (0.3-1.2) 03/07/25 04:50 Direct Bilirubin 0.1 mg/dL (0.0-0.3) 03/07/25 04:50 AST 24 U/L (0-34) 03/07/25 04:50 ALT 24 U/L (10-49) 03/07/25 04:50 Alkaline Phosphatase 102 U/L (46-116) 03/07/25 04:50 Total Protein 7.3 gm/dL (5.7-8.2) 03/07/25 04:50 Albumin 4.7 gm/dL (3.5-5.0) 03/07/25 04:50 Globulin 2.6 gm/dL (2.3-3.5) 03/07/25 04:50 Albumin/Globulin Ratio 1.8 (1.2-2.2) 03/07/25 04:50 HCG, Qual Negative 03/07/25 04:50 Ur Collection Type Clean Catch 03/07/25 06:28 Urine Color Colorless (Lt Yel-Yel) A 03/07/25 06:28 Urine Clarity Clear (Clear/Hazy) 03/07/25 06:28 Urine pH 6.5 (5.0-7.0) 03/07/25: Ur Specific [place] 1.007 (1.001-1.035) 03/07/25 06: Urine Protein Negative (Neg - Trace) 03/07/25: Urine Glucose (UA) Negative (Negative) 03/07/25 06: Urine Ketones Negative (Negative) 03/07/25: Urine Blood Negative (Negative) 03/07/25 06: Urine Nitrite Negative (Negative) 03/07/25: Urine Bilirubin Negative (Negative) 03/07/25 06: Urine Urobilinogen (Auto) Negative mg/dL (0.0-1.0) 03/07/25 06: Ur Leukocyte Esterase Negative (Negative) 03/07/25: Urine RBC 2 /hpf (0-3) 03/07/25: Urine WBC 1 /hpf (0-5) 03/07/25: Ur Squamous Epith Cells 1 /hpf (0-5) 03/07/25: Urine Bacteria None (None) 03/07/25 06: Ur Culture Indicated? Not Indicated 03/07/25 06:28 Imaging: Procedure(s): US pelvic complete Accession Number(s): [id number] cc: Jae Oconnell MD; Horacio Qureshi MD~ Examination: Pelvic ultrasound, transabdominal, complete Technique: Transabdominal ultrasound of the pelvis performed using grayscale imaging Date and time of exam: March 07, 2025 0558 hours INDICATIONS: Pelvic pain and weakness beginning 2 hours ago FINDINGS: Uterus 9.1 cm endometrial stripe 0.5 cm No uterine mass or intrauterine gestation Right ovary 5.2 cm arterial flow, right ovarian cyst 19 x 21 mm Left ovary obscured by bowel gas IMPRESSION: Abnormal enlargement and vascular right ovary 5.2 x 4.1 x 3.9 cm, differential would include early right ovarian tumor, recommend MRI pelvis follow-up pre and postcontrast Dictated By: Horacio Qureshi MD Procedure(s): CT abdomen pelvis w con Accession Number(s): [id number] cc: Ary Neumann MD; Jae Oconnell MD; Horacio Qureshi MD~ Examination: CT abdomen with intravenous contrast CT pelvis with intravenous contrast 2-D coronal reconstructions 2-D sagittal reconstructions Date and time of exam:March 07, 2025 at 0644 hours INDICATIONS: Onset of pelvic pain today. CTDI: vol (mGy) 6.42 DLP: (mGycm) 342 Technique: Multiple axial sections of the abdomen and pelvis have been obtained. 64 slice high-resolution scanner used. 3 mm axial sections have been obtained, post intravenous injection 60 cc [id number] 2-D sagittal, coronal reconstructions obtained. Low dose protocols were performed. One or more of the following dose reduction techniques were used; automated exposure control, adjustment of the mA and/or KV according to patient size, use of iterative reconstruction technique. Findings: 13 mm low-density lesion upper right lobe of the liver which may represent a cyst Spleen is not enlarged No gallstones No pancreatic mass No renal or ureteral calculi, no hydronephrosis Aorta normal size Normal appendix No bowel obstruction Anteverted uterus Enlarged right adnexal mass with thick wall and septations, measuring at least 5 cm Urinary bladder intact Osseous structures intact IMPRESSION: Recommend hepatic sonography to confirm 13 mm right lobe liver cyst Enlarged right adnexal mass, thick-walled with septations, measuring at least 5 cm, differential would include cystadenocarcinoma Recommend MRI pelvis follow-up and postcontrast Dictated By: Horacio Qureshi MD
[2025-03-07 05:50] VITALS: BP 114/70; PULSE 69; RESP 19; TEMP 36.6; O2SAT 100
[2025-03-07 06:46] LABS: Collection Type, Urine Clean Catch
[2025-03-07 06:51] LABS: Bilirubin,Urine Negative (Negative); Blood,Urine Negative (Negative); Clarity,Urine Clear (Clear/Hazy); Color,Urine Colorless (Lt Yel-Yel); Culture Indicated,Urine Not Indicated; Glucose, Urine Negative (Negative); Ketones,Urine Negative (Negative); Leukocyte Esterase,Urine Negative (Negative); Nitrite,Urine Negative (Negative); PH,Urine 6.5 (5.0-7.0); Protein,Urine Negative (Neg - Trace); RBC,Urine 2 /hpf (0-3); Specific Gravity,Urine 1.007 (1.001-1.035); Squamous Epithelial Cell,Urine 1 /hpf (0-5); Urobilinogen,Urine Negative mg/dL (0.0-1.0); WBC,Urine 1 /hpf (0-5)
[2025-03-07 07:52] VITALS: BP 117/56; PULSE 76; RESP 18; TEMP 36.7; O2SAT 98
[2025-03-07 09:12] VITALS: BP 104/72; PULSE 70; RESP 15; O2SAT 100
[2025-03-07 11:18] VITALS: BP 101/50; PULSE 69; RESP 19; TEMP 36.8; O2SAT 100
== END 2025-03-07 11:21 | disposition home or self-care (01) ==
PROVIDERS: Emergency Medicine; Emergency Provider Family Medicine; PCP Internal Medicine
DX: N83.201 Unspecified ovarian cyst, right side (principal); K76.89 Other specified diseases of liver
CPT/HCPCS: 36415; 72197; 74177; 76856; 80053; 81001; 82248; 83735; 84703; 85025; 85610; 85730; 96361; 96374; 96375; 99285; A4649; A9579; J1885; J2270; J2405; J7030; Q9967

== ENCOUNTER → 2025-08-21 | Outpatient (CLI) | payer MEDICAID, SELFPAY ==
--- NOTE | 2025-08-21 08:45 | XR_ITS ---
Examination: Abdomen sonogram, Limited Date and time of exam: 08/21/2025, the time is 9:18 a.m. Technique: Real-time shipman scale transabdominal sonographic images of the upper abdomen obtained. Findings: Indications: Evaluate liver cyst Comparison is made with the prior CT of the abdomen on 03/07/2025. The echogenic appearance of the liver parenchyma is normal involving all lobes, the size and directional color flow of the hepatic veins and portal veins is normal the visualized portion of the upper half of the right kidney is normal. The gallbladder has a normal appearing wall which is not abnormally thickened. The intrahepatic biliary ducts are perfectly normal in size and appearance along the posterior wall of the gallbladder there is a spherical diffusely echogenic nodule measuring 0.47 cm in maximum diameter. This is consistent with a benign gallbladder polyp. Within the posterior superior aspect of the right lobe of the liver there is a spherical diffusely hyperechoic nodule measuring 1.5 x 1.8 cm. No ascites is seen. The head and body of the pancreas appear normal in size and echogenicity and appearance. I do not see any right pleural effusion. IMPRESSION: 1. 1 small spherical 0.4 cm diameter polyp along the posterior margin of the gallbladder wall, felt to be insignificant. 2. There is a 1.5 x 1.8 cm diffusely hyperechoic nodule posterosuperiorly in the right lobe of the liver. This was present on the abdominal CT study on 03/07/2025, its maximum diameter at that time was 1.3 cm 3. The appearance on the CT and especially the appearance of diffuse hyper echogenicity on today's ultrasound is virtually diagnostic for a benign hepatic hemangioma these are much more common in female patients, further supporting this diagnosis 4. In all other respects this ultrasound exam is entirely normal
== END | disposition home or self-care (01) ==
PROVIDERS: PCP Internal Medicine; Referring Provider Internal Medicine; Visit Provider Internal Medicine
DX: K76.89 Other specified diseases of liver (principal); K82.4 Cholesterolosis of gallbladder
CPT/HCPCS: 76705